=== PATIENT | female | born 1935 | race Caucasian/White ===

== ENCOUNTER → 2016-11-08 | Outpatient (CLI) | payer MEDICARE, OTHER ==
[~2016-11-08] MED LIST: ACIP20TA19; ATOR10 PO; CARD180C5 PO; DICL25 TOPICAL; DIOV160T60 PO; LEVO.075 PO; MAGN500T4 PO; ZOLP10TA3 PO
[2016-11-08 16:10] LABS: BICARBONATE 25.2 MEQ/L (21.0-32.0); POTASSIUM 3.9 MEQ/L (3.5-5.1)
[2016-11-08 16:13] LABS: AUTOMATED NEUTROPHIL # 5.5 TH/MM3 (1.8-7.7); BASOPHIL % 0.5 % (0.0-2.0); EOSINOPHIL # 0.2 TH/MM3 (0-0.4); EOSINOPHIL % 2.5 % (0.0-4.0); HEMO FLAGS DIFF FINAL; LYMPH % 22.1 % (9.0-44.0); LYMPHOCYTE # 1.9 TH/MM3 (1.0-4.8); MEAN CELL VOLUME 84.2 FL (80.0-100.0); MEAN CORPUSCULAR HEMOGLOBIN 28.8 PG (27.0-34.0); MEAN CORPUSCULAR HGB CONC 34.2 % (32.0-36.0); MONO % 10.7 % (0.0-8.0); NEUT % 64.2 % (16.0-70.0); PLATELET COUNT 437 TH/MM3 (150-450); RED BLOOD COUNT 3.68 MIL/MM3 (4.00-5.30); RED CELL DISTRIBUTION WIDTH 14.6 % (11.6-17.2); WHITE BLOOD COUNT 8.5 TH/MM3 (4.0-11.0)
[2016-11-08 16:22] LABS: BACTERIA, URINE MOD /hpf; BLOOD, URINE NEG (NEG); COMMENT (UR) CULTURE INDICATED; CULTURE IF INDICATED CULTURE INDICATED; GLUCOSE,URINE NEG (NEG); KETONE, URINE NEG (NEG); MUCUS URINE FEW /lpf (OCC); NITRITE,URINE NEG (NEG); PH, URINE 5.5 (5.0-8.5); RENAL EPITHELIAL CELLS <1 /hpf; SQUAMOUS EPITHELIAL CELL URINE 2 /hpf (0-5); URINE COLOR YELLOW (YELLW/STRAW)
== END ==
LOC: PLAB 12:51
PROVIDERS: ATTEND Internal Medicine Nephrology
DX: I12.9 Hypertensive chronic kidney disease with stage 1 through stage 4 chronic kidney disease, or unspecified chronic kidney disease (principal); N18.4 Chronic kidney disease, stage 4 (severe); E55.9 Vitamin D deficiency, unspecified; N39.0 Urinary tract infection, site not specified; B96.1 Klebsiella pneumoniae [K. pneumoniae] as the cause of diseases classified elsewhere
CPT/HCPCS: 36415; 80069; 81001; 82306; 83970; 85025; 87077; 87086; 87186

== ENCOUNTER → 2017-05-21 | Outpatient (CLI) | payer MEDICARE, OTHER ==
[2017-05-21 09:20] LABS: AUTOMATED NEUTROPHIL # 5.3 TH/MM3 (1.8-7.7); BASOPHIL # 0.1 TH/MM3 (0-0.2); BASOPHIL % 1.2 % (0.0-2.0); EOSINOPHIL # 0.4 TH/MM3 (0-0.4); EOSINOPHIL % 4.4 % (0.0-4.0); HEMATOCRIT 35.6 % (35.0-46.0); HEMO FLAGS DIFF FINAL; LYMPH % 28.6 % (9.0-44.0); LYMPHOCYTE # 2.7 TH/MM3 (1.0-4.8); MEAN CELL VOLUME 85.5 FL (80.0-100.0); MEAN CORPUSCULAR HEMOGLOBIN 28.6 PG (27.0-34.0); MEAN CORPUSCULAR HGB CONC 33.5 % (32.0-36.0); MONO % 10.3 % (0.0-8.0); NEUT % 55.5 % (16.0-70.0); PLATELET COUNT 649 TH/MM3 (150-450); RED BLOOD COUNT 4.16 MIL/MM3 (4.00-5.30); RED CELL DISTRIBUTION WIDTH 13.9 % (11.6-17.2); WHITE BLOOD COUNT 9.6 TH/MM3 (4.0-11.0)
[2017-05-21 09:44] LABS: BICARBONATE 27.5 MEQ/L (21.0-32.0); POTASSIUM 4.3 MEQ/L (3.5-5.1)
[2017-05-21 13:25] LABS: BLOOD, URINE NEG (NEG); COMMENT (UR) CULT NOT INDICATED; CULTURE IF INDICATED CULT NOT INDICATED; GLUCOSE,URINE NEG (NEG); KETONE, URINE NEG (NEG); NITRITE,URINE NEG (NEG); PH, URINE 5.5 (5.0-8.5); SQUAMOUS EPITHELIAL CELL URINE 3 /hpf (0-5); TRANSITIONAL EPI CELLS, URINE <1 /hpf; URINE COLOR YELLOW (YELLW/STRAW)
== END ==
LOC: PLAB 07:20
PROVIDERS: ATTEND Internal Medicine Nephrology
DX: I12.9 Hypertensive chronic kidney disease with stage 1 through stage 4 chronic kidney disease, or unspecified chronic kidney disease (principal); N18.3 Chronic kidney disease, stage 3 (moderate); E55.9 Vitamin D deficiency, unspecified
CPT/HCPCS: 36415; 80069; 81001; 82306; 85025

== ENCOUNTER → 2017-07-03 | Outpatient (CLI) | payer MEDICARE, OTHER ==
[2017-07-03 09:39] LABS: HEMATOCRIT 33.2 % (35.0-46.0); MEAN CELL VOLUME 86.1 FL (80.0-100.0); MEAN CORPUSCULAR HEMOGLOBIN 29.2 PG (27.0-34.0); MEAN CORPUSCULAR HGB CONC 33.9 % (32.0-36.0); PLATELET COUNT 540 TH/MM3 (150-450); RED BLOOD COUNT 3.85 MIL/MM3 (4.00-5.30); RED CELL DISTRIBUTION WIDTH 13.4 % (11.6-17.2); REVIEW FLAG FINAL; WHITE BLOOD COUNT 9.2 TH/MM3 (4.0-11.0)
[2017-07-03 10:45] LABS: ANION GAP 10 MEQ/L (5-15); AST (GOT) 13 U/L (15-37); BICARBONATE 22.7 MEQ/L (21.0-32.0); BLOOD UREA NITROGEN 25 MG/DL (7-18); CHLORIDE 106 MEQ/L (98-107); GLOMERULAR FILTRATION RATE 26 ML/MIN (>89); GLUCOSE,FASTING 89 MG/DL (74-99); POTASSIUM 3.8 MEQ/L (3.5-5.1); SODIUM (NA) 139 MEQ/L (136-145)
[2017-07-03 11:11] LABS: ALKALINE PHOSPHATASE 76 U/L (45-117); ALT (GPT) 14 U/L (10-53); FREE T4 1.18 NG/DL (0.76-1.46); HDL CHOLESTEROL 44.2 MG/DL (40.0-60.0); LDL CHOLESTEROL 52 MG/DL (0-99); LDL CHOLESTEROL DIRECT 71 MG/DL (0-99); TOTAL BILIRUBIN ADULT 1.3 MG/DL (0.2-1.0)
[2017-07-03 12:21] LABS: HEMOGLOBIN A1b 1.8 %; HEMOGLOBIN Ao 85.2 %; HEMOGLOBIN P3 3.9 %
== END ==
LOC: PLAB 07:04
PROVIDERS: ATTEND Family Medicine
DX: N18.3 Chronic kidney disease, stage 3 (moderate) (principal); E78.4 Other hyperlipidemia; I10 Essential (primary) hypertension; E55.9 Vitamin D deficiency, unspecified; E53.8 Deficiency of other specified B group vitamins
CPT/HCPCS: 36415; 80053; 80061; 82306; 82607; 83036; 83721; 84439; 84443; 85027

== ENCOUNTER 2017-10-08 09:15 | Emergency (ER) | payer MEDICARE, OTHER ==
[~2017-10-08] VITALS: Ht 165.1 cm; Wt 60.0 kg
[2017-10-08 09:17] VITALS: BP 146/69; PULSE 88; RESP 20; TEMP 97.7; O2SAT 98
[2017-10-08] MEDS ORDERED: LEVO75TA3 PO (09:32)
[2017-10-08] MEDS ORDERED: DILT120C50 PO (09:32)
[2017-10-08] MEDS ORDERED: VALS1TAB65 PO (09:32)
[2017-10-08] MEDS ORDERED: ATOR10TA15 PO (09:32)
--- NOTE | 2017-10-08 09:38 | PD ---
HPI Chief Complaint: Cold / Flu Symptoms Time Seen by Provider: 09:22 Travel History International Travel<30 days: No Contact w/Intl Traveler<30days: No Traveled to known affect area: No History of Present Illness HPI This 82-year-old female says she been sick for 4 days. She's been coughing a lot. He has had bronchitis many years ago. She is not aware of fever but she has had chills. She's been coughing up some green and yellow phlegm and has had some yellow drainage from her nose. She has never smoked or drank. She does feel tired. She's had intermittent vomiting when she tries to eat. She has been anemic in the past and received intravenous iron injections. There is been no blood in the vomitus recently PFS Past Medical History Autoimmune Disease: No Cancer: No Cardiovascular Problems: Yes High Cholesterol: Yes Chemotherapy: No Genitourinary: No Hypertension: Yes Immune Disorder: No Kidney Stones: Yes Musculoskeletal: No Neurologic: No Psychiatric: No Reproductive: No Respiratory: No Radiation Therapy: No Thyroid Disease: Yes Ulcer: Yes Menopausal: Yes Past Surgical History AICD: No Hysterectomy: Yes Joint Replacement: No Pacemaker: No Other Surgery: Yes (IMPLANTED HEARING AID IN RIGHT EAR SX) Social History Alcohol Use: No Tobacco Use: No Substance Use: No Allergies-Medications (Allergen,Severity, Reaction): Coded Allergies: Influenza Virus Vaccines (Unverified Allergy, Severe, Confusion, 10/08/17) Reported Meds & Prescriptions Reported Meds & Active Scripts Active Reported Levothyroxine (Levothyroxine Sodium) 75 Mcg Tab 75 Mcg PO DAILY Valsartan 160 Mg Tab 160 Mg PO DAILY Diltiazem CD 24 HR 120 Mg Caper 180 Mg PO DAILY Atorvastatin (Atorvastatin Calcium) 10 Mg Tab 10 Mg PO HS Review of Systems General / Constitutional: Positive: Chills, No: Fever Eyes: No: Diploplia, Blurred Vision HENT: No: Headaches Cardiovascular: No: Chest Pain or Discomfort, Palpitations Respiratory: Positive: Cough Gastrointestinal: Positive: Nausea, Vomiting, No: Diarrhea Genitourinary: No: Frequency, Dysuria Musculoskeletal: No: Myalgias, Arthralgias Skin: No Rash Neurologic: No: Weakness, Dizziness Psychiatric: No: Anxiety, Depression Endocrine: No: Heat Intolerance, Cold Intolerance Hematologic/Lymphatic: No: Easy Bruising Physical Exam Narrative GENERAL: Well-developed female SKIN: Focused skin assessment warm/dry. HEAD: Atraumatic. Normocephalic. EYES: Pupils equal and round. No scleral icterus. No injection or drainage. ENT: No nasal bleeding or discharge. Mucous membranes pink and moist. NECK: Trachea midline. No JVD. CARDIOVASCULAR: Regular rate and rhythm. No murmur appreciated. RESPIRATORY: No accessory muscle use. There are occasional rhonchi. Breath sounds equal bilaterally. GASTROINTESTINAL: Abdomen soft, non-tender, nondistended. Hepatic and splenic margins not palpable. MUSCULOSKELETAL: No obvious deformities. No clubbing. No cyanosis. No edema. NEUROLOGICAL: Awake and alert. No obvious cranial nerve deficits. Motor grossly within normal limits. Normal speech. PSYCHIATRIC: Appropriate mood and affect; insight and judgment normal. Data Data Last Documented VS Vital Signs Date Time Temp Pulse Resp B/P (MAP) Pulse Ox O2 Delivery O2 Flow Rate FiO2 10/08/17 09:28 Room Air 10/08/17 09:17 97.7 88 20 146/69 (94) 98 Orders Orders Complete Blood Count With Diff (10/08/17 09:32) Comprehensive Metabolic Panel (10/08/17 09:32) Sodium Chlor 0.9% 1000 Ml Inj (Ns 1000 M (10/08/17 09:45) Ondansetron Inj (Zofran Inj) (10/08/17 09:45) Chest, Single Ap (10/08/17 09:32) Potassium Chloride (Kcl) (10/08/17 10:15) Labs Laboratory Tests Test 10/08/17 09:42 White Blood Count 11.6 TH/MM3 Red Blood Count 3.03 MIL/MM3 Hemoglobin 9.2 GM/DL Hematocrit 27.1 % Mean Corpuscular Volume 89.5 FL Mean Corpuscular Hemoglobin 30.2 PG Mean Corpuscular Hemoglobin Concent 33.7 % Red Cell Distribution Width 13.9 % Platelet Count 515 TH/MM3 Mean Platelet Volume 7.2 FL Neutrophils (%) (Auto) 77.9 % Lymphocytes (%) (Auto) 10.5 % Monocytes (%) (Auto) 10.5 % Eosinophils (%) (Auto) 0.8 % Basophils (%) (Auto) 0.3 % Neutrophils # (Auto) 9.1 TH/MM3 Lymphocytes # (Auto) 1.2 TH/MM3 Monocytes # (Auto) 1.2 TH/MM3 Eosinophils # (Auto) 0.1 TH/MM3 Basophils # (Auto) 0.0 TH/MM3 CBC Comment DIFF FINAL Differential Comment Blood Urea Nitrogen 31 MG/DL Creatinine 1.90 MG/DL Random Glucose 105 MG/DL Total Protein 7.4 GM/DL Albumin 3.5 GM/DL Calcium Level 6.7 MG/DL Alkaline Phosphatase 73 U/L Aspartate Amino Transf (AST/SGOT) 26 U/L Alanine Aminotransferase (ALT/SGPT) 19 U/L Total Bilirubin 1.6 MG/DL Sodium Level 127 MEQ/L Potassium Level 3.3 MEQ/L Chloride Level 89 MEQ/L Carbon Dioxide Level 23.6 MEQ/L Anion Gap 14 MEQ/L Estimat Glomerular Filtration Rate 25 ML/MIN Protein Corrected Calcium 6.6 MG/DL [facility] Medical Decision Making Medical Screen Exam Complete: Yes Emergency Medical Condition: Yes Medical Record Reviewed: Yes Differential Diagnosis Differential includes pneumonia, bronchitis, viral URI Narrative Course Hemoglobin is 9.2. White count is 11,000. Chest x-rays read as negative. Lab work remarkable for potassium 3.3. Her calcium is low at 6.6 impression is acute bronchitis. She'll be put on antibiotics. She is to follow-up with Dr. Gilmore Diagnosis Primary Impression: Acute bronchitis Qualified Codes: J20.9 - Acute bronchitis, unspecified Scripts Acetaminophen-Codeine (Tylenol-Codeine #3) 300-30 mg Tab 1 TAB PO Q4H Y for cough, #15 TAB 0 Refills Prov: Bro El MD 10/08/17 Ondansetron Odt (Zofran Odt) 4 Mg Tab 4 MG SL Q6HR Y for Nausea/Vomiting, #10 TAB 0 Refills Prov: Bro El MD 10/08/17 Amoxicillin (Amoxicillin) 500 Mg Tab 500 MG PO TID for Infection for 7 Days, TAB 0 Refills Prov: Bro El MD 10/08/17 Disposition: 01 DISCHARGE HOME Condition: Stable Bro El MD Oct 08, 2017 09:38
[2017-10-08] MEDS ORDERED: ONDANSETRON HCL 4 MG/2 ML VIAL IV PUSH ONE (09:45)
[2017-10-08] MEDS ORDERED: SODIUM CHLOR 0.9% 1000 ML INJ 1,000 ML IV SCH (09:45)
[2017-10-08 09:56] LABS: AUTOMATED NEUTROPHIL # 9.1 TH/MM3 (1.8-7.7); BASOPHIL % 0.3 % (0.0-2.0); EOSINOPHIL # 0.1 TH/MM3 (0-0.4); EOSINOPHIL % 0.8 % (0.0-4.0); HEMATOCRIT 27.1 % (35.0-46.0); HEMOGLOBIN 9.2 GM/DL (11.6-15.3); LYMPH % 10.5 % (9.0-44.0); LYMPHOCYTE # 1.2 TH/MM3 (1.0-4.8); MEAN CELL VOLUME 89.5 FL (80.0-100.0); MEAN CORPUSCULAR HEMOGLOBIN 30.2 PG (27.0-34.0); MEAN CORPUSCULAR HGB CONC 33.7 % (32.0-36.0); MEAN PLATELET VOLUME 7.2 FL (7.0-11.0); MONO % 10.5 % (0.0-8.0); MONOCYTE # 1.2 TH/MM3 (0-0.9); NEUT % 77.9 % (16.0-70.0); PLATELET COUNT 515 TH/MM3 (150-450); RED BLOOD COUNT 3.03 MIL/MM3 (4.00-5.30); RED CELL DISTRIBUTION WIDTH 13.9 % (11.6-17.2); WHITE BLOOD COUNT 11.6 TH/MM3 (4.0-11.0)
--- NOTE | 2017-10-08 09:57 | RADRPT ---
EXAM DATE/TIME: 10/08/2017 09:46 [facility] COMPARISON: CHEST SINGLE AP, March 21, 2015, 10:38. INDICATIONS : Cough and congestion for 3 days. MEDICAL HISTORY : Hypertension. Hypercholesterolemia. Thyroid disease. SURGICAL HISTORY : Hysterectomy. Thyroidectomy. ENCOUNTER: Initial ACUITY: 3 days PAIN SCORE: 4/10 LOCATION: Bilateral chest FINDINGS: The cardiac silhouette is normal in transverse diameter. The lungs are free of acute parenchymal opac ity. No effusions are identified. CONCLUSION: No acute cardiopulmonary disease. Miguel Saravia MD on October 08, 2017 at 9:55 Board Certified Radiologist. This report was verified electronically.
[2017-10-08] MEDS ORDERED: POTASSIUM CHLORIDE 20 MEQ CONTROLLED RELEASE TAB PO ONE (10:15)
[2017-10-08 10:25] LABS: ALBUMIN 3.5 GM/DL (3.4-5.0); BICARBONATE 23.6 MEQ/L (21.0-32.0); CALCIUM 6.7 MG/DL (8.5-10.1); CREATININE 1.9 MG/DL (0.50-1.00); TOTAL BILIRUBIN ADULT 1.6 MG/DL (0.2-1.0); TOTAL PROTEIN 7.4 GM/DL (6.4-8.2)
[2017-10-08 10:27] LABS: CALCIUM-PROTEIN CORRECTED 6.6 MG/DL (8.5-10.1)
[2017-10-08] MEDS ORDERED: TYLETAB34 PO (10:51)
[2017-10-08] MEDS ORDERED: AMOX500T PO (10:51)
[2017-10-08] MEDS ORDERED: ZOFR4TAB3 SL (10:51)
[2017-10-08] MEDS ORDERED: robitussin ac PO (10:58)
[2017-10-08 11:02] VITALS: BP 106/61; PULSE 69; RESP 18; O2SAT 93
== END 2017-10-08 11:30 | disposition home or self-care (01) ==
LOC: PHED 09:15
DX: J02.9 Acute pharyngitis, unspecified (principal); I10 Essential (primary) hypertension; E07.9 Disorder of thyroid, unspecified
CPT/HCPCS: 71045; 80053; 85025; 96374; 99284; J2405; J7030

== ENCOUNTER 2017-10-13 15:12 | Emergency (ER) | payer MEDICARE, OTHER ==
[~2017-10-13] VITALS: Ht 165.1 cm; Wt 59.0 kg
[~2017-10-13 15:12] MED LIST changes: -ACIP20TA19; +AMOX500T PO; -ATOR10 PO; +ATOR10TA15 PO; -CARD180C5 PO; -DICL25 TOPICAL; +DILT120C50 PO; -DIOV160T60 PO; -LEVO.075 PO; +LEVO75TA3 PO; -MAGN500T4 PO; +TYLETAB34 PO; +VALS1TAB65 PO; +ZOFR4TAB3 SL; -ZOLP10TA3 PO; +robitussin ac PO
[2017-10-13 15:14] VITALS: BP 122/63; PULSE 99; RESP 18; TEMP 99.3; O2SAT 98
[2017-10-13] MEDS ORDERED: CHOL400D2 PO (15:37)
[2017-10-13] MEDS ORDERED: VITA10002 PO (15:37)
[2017-10-13] MEDS ORDERED: AMBI10TA PO (15:37)
[2017-10-13] MEDS ORDERED: ACETAMINOPHEN 500 MG CPLT PO ONE (16:30)
--- NOTE | 2017-10-13 17:10 | RADRPT ---
EXAM DATE/TIME: 10/13/2017 16:30 [facility] COMPARISON: No previous studies available for comparison. INDICATIONS : Woke up with severe right wrist pain, unable to straighten wrist, no known injury MEDICAL HISTORY : Hypertension. SURGICAL HISTORY : Hysterectomy. ENCOUNTER: Initial ACUITY: 1 day PAIN SCORE: 10/10 LOCATION: Right wrist FINDINGS: Osseous structures are osteopenic. There is old ununited fracture of the ulnar styloid with osteoarth ritis involving the radiocarpal joint. There is no evidence of acute fracture. CONCLUSION: 1. Osteoarthritis as above Miguel Saravia MD on October 13, 2017 at 17:07 Board Certified Radiologist. This report was verified electronically.
[2017-10-13] MEDS ORDERED: PRED20 PO (17:11)
--- NOTE | 2017-10-13 17:12 | PD ---
HPI Chief Complaint: Musculoskeletal Complaint Time Seen by Provider: 15:27 Travel History International Travel<30 days: No Contact w/Intl Traveler<30days: No Traveled to known affect area: No History of Present Illness HPI 82 year old female with nontraumatic right wrist pain since this morning. She reports she awoke to right wrist pain, swelling, warmth. Pain is reported as constant and throbbing. She denies paresthesias or weakness in the extremity. She reports pain with palpation of the wrist and movement. She does have a history of gout. Pain is slightly relieved with rest. PFSH Past Medical History Autoimmune Disease: No Cancer: No Cardiovascular Problems: Yes High Cholesterol: Yes Chemotherapy: No Genitourinary: No Hypertension: Yes Immune Disorder: No Implanted Vascular Access Dvce: No Kidney Stones: Yes Musculoskeletal: No Neurologic: No Psychiatric: No Reproductive: No Respiratory: No Radiation Therapy: No Thyroid Disease: Yes Ulcer: Yes Tetanus Vaccination: < 5 Years Menopausal: Yes Past Surgical History AICD: No Hysterectomy: Yes Joint Replacement: No Pacemaker: No Other Surgery: Yes (IMPLANTED HEARING AID IN RIGHT EAR SX, thyroidectomy) Social History Alcohol Use: No Tobacco Use: No Substance Use: No Allergies-Medications (Allergen,Severity, Reaction): Coded Allergies: Influenza Virus Vaccines (Unverified Allergy, Severe, Confusion, 10/13/17) Reported Meds & Prescriptions Reported Meds & Active Scripts Active Ultram (Tramadol HCl) 50 Mg Tab 50 Mg PO Q6H PRN 3 Days Prednisone 20 Mg Tab 40 Mg PO DAILY Take 40 mg (2 tablets) daily for 5 days [robitussin ac] 5-10 Ml PO Q6HR 7 Days Amoxicillin 500 Mg Tab 500 Mg PO TID 7 Days Reported Vitamin B-12 (Cyanocobalamin) 1,000 Mcg Tab 1,000 Mcg PO DAILY Vitamin D (Cholecalciferol) 400 Unit/Ml Drops 400 Units PO DAILY Ambien (Zolpidem Tartrate) 10 Mg Tab 10 Mg PO HS PRN Levothyroxine (Levothyroxine Sodium) 75 Mcg Tab 75 Mcg PO DAILY Valsartan 160 Mg Tab 160 Mg PO DAILY Diltiazem CD 24 HR 120 Mg Caper 180 Mg PO DAILY Atorvastatin (Atorvastatin Calcium) 10 Mg Tab 10 Mg PO HS Review of Systems Except as stated in HPI: all other systems reviewed are Neg General / Constitutional: No: Fever Eyes: No: Visual changes HENT: No: Headaches Cardiovascular: No: Chest Pain or Discomfort Respiratory: No: Shortness of Breath Gastrointestinal: No: Abdominal Pain Genitourinary: No: Dysuria Physical Exam Narrative GENERAL: Alert well-appearing female. SKIN: Warm and dry. HEAD: Normocephalic. EYES: No injection or drainage. NECK: Supple, trachea midline. CARDIOVASCULAR: Regular rate and rhythm without murmurs, gallops, or rubs. RESPIRATORY: Breath sounds equal bilaterally. No accessory muscle use. GASTROINTESTINAL: Abdomen soft, non-tender, nondistended. MUSCULOSKELETAL: No cyanosis. Right upper extremity: Mild swelling, warmth, erythema to the right wrist dorsal aspect. No wounds, lesions, or overlying cellulitis. 2+ radial pulse. Brisk cap refill. Data Data Last Documented VS Vital Signs Date Time Temp Pulse Resp B/P (MAP) Pulse Ox O2 Delivery O2 Flow Rate FiO2 10/13/17 15:14 99.3 99 18 122/63 (82) 98 Orders Orders Wrist, Complete ([id number]) (10/13/17 ) Acetaminophen (Tylenol) (10/13/17 16:30) Ed Discharge Order (10/13/17 17:14) MDM Medical Decision Making Medical Screen Exam Complete: Yes Emergency Medical Condition: Yes Differential Diagnosis Gout, arthritis, wrist fracture, septic joint Narrative Course 82 -year-old female here with nontraumatic right wrist pain. She has a history of gout. This pain is similar. On exam she has mild warmth, erythema, swelling of the right wrist. X-rays negative for fracture. Patient has known chronic kidney disease. She will be put on steroids and Ultram as needed for pain. She has a follow-up appointment with her doctor tomorrow. Diagnosis Primary Impression: Gout Qualified Codes: M10.9 - Gout, unspecified Referrals: Primary Care Physician Additional Instructions: Medications as prescribed. Follow-up the primary doctor. Return if he developed new or worsening symptoms. Scripts Tramadol (Ultram) 50 Mg Tab 50 MG PO Q6H Y for PAIN for 3 Days, #12 TAB 0 Refills Prov: Saadia Franco MD 10/13/17 Prednisone (Prednisone) 20 Mg Tab 40 MG PO DAILY, #10 TAB 0 Refills Take 40 mg (2 tablets) daily for 5 days Prov: Flori Dykes 10/13/17 Disposition: 01 DISCHARGE HOME Condition: Stable Flori Dykes Oct 13, 2017 17:12
[2017-10-13] MEDS ORDERED: TRAM50 PO (17:17)
== END 2017-10-13 17:26 | disposition home or self-care (01) ==
LOC: PHEFT 15:12
DX: M10.9 Gout, unspecified (principal); E07.9 Disorder of thyroid, unspecified; I10 Essential (primary) hypertension
CPT/HCPCS: 73110; 99284

== ENCOUNTER → 2017-11-11 | Outpatient (CLI) | payer MEDICARE, OTHER ==
[~2017-11-11] MED LIST changes: +AMBI10TA PO; +CHOL400D2 PO; +PRED20 PO; +TRAM50 PO; -TYLETAB34 PO; +VITA10002 PO; -ZOFR4TAB3 SL
[2017-11-11 09:58] LABS: AUTOMATED NEUTROPHIL # 3.2 TH/MM3 (1.8-7.7); BASOPHIL % 0.8 % (0.0-2.0); EOSINOPHIL # 0.2 TH/MM3 (0-0.4); EOSINOPHIL % 3.3 % (0.0-4.0); HEMATOCRIT 28.4 % (35.0-46.0); HEMOGLOBIN 9.7 GM/DL (11.6-15.3); LYMPH % 30.9 % (9.0-44.0); LYMPHOCYTE # 1.8 TH/MM3 (1.0-4.8); MEAN CELL VOLUME 90.2 FL (80.0-100.0); MEAN CORPUSCULAR HEMOGLOBIN 30.9 PG (27.0-34.0); MEAN CORPUSCULAR HGB CONC 34.2 % (32.0-36.0); MEAN PLATELET VOLUME 7.5 FL (7.0-11.0); MONO % 10.5 % (0.0-8.0); MONOCYTE # 0.6 TH/MM3 (0-0.9); NEUT % 54.5 % (16.0-70.0); PLATELET COUNT 449 TH/MM3 (150-450); RED BLOOD COUNT 3.15 MIL/MM3 (4.00-5.30); RED CELL DISTRIBUTION WIDTH 16.2 % (11.6-17.2); WHITE BLOOD COUNT 5.8 TH/MM3 (4.0-11.0)
[2017-11-11 10:05] LABS: ALBUMIN 3.7 GM/DL (3.4-5.0); BICARBONATE 23.6 MEQ/L (21.0-32.0); CALCIUM 7.8 MG/DL (8.5-10.1); CREATININE 1.3 MG/DL (0.50-1.00)
[2017-11-11 10:06] LABS: PHOSPHORUS 3.1 MG/DL (2.5-4.9)
== END ==
LOC: PLAB 07:13
PROVIDERS: ATTEND Internal Medicine Nephrology
DX: I12.9 Hypertensive chronic kidney disease with stage 1 through stage 4 chronic kidney disease, or unspecified chronic kidney disease (principal); N18.3 Chronic kidney disease, stage 3 (moderate); E55.9 Vitamin D deficiency, unspecified; M10.9 Gout, unspecified
CPT/HCPCS: 36415; 80069; 82306; 83970; 84550; 85025

== ENCOUNTER → 2018-02-11 | Outpatient (CLI) | payer MEDICARE, OTHER ==
[2018-02-11 10:15] LABS: HEMATOCRIT 36.8 % (35.0-46.0); HEMOGLOBIN 12.7 GM/DL (11.6-15.3); MEAN CELL VOLUME 88.2 FL (80.0-100.0); MEAN CORPUSCULAR HEMOGLOBIN 30.4 PG (27.0-34.0); MEAN CORPUSCULAR HGB CONC 34.5 % (32.0-36.0); MEAN PLATELET VOLUME 7.3 FL (7.0-11.0); PLATELET COUNT 770 TH/MM3 (150-450); RED BLOOD COUNT 4.17 MIL/MM3 (4.00-5.30); RED CELL DISTRIBUTION WIDTH 13.3 % (11.6-17.2); WHITE BLOOD COUNT 8.1 TH/MM3 (4.0-11.0)
[2018-02-11 10:18] LABS: ALBUMIN 4.3 GM/DL (3.4-5.0); AST (GOT) 14 U/L (15-37); BICARBONATE 26.4 MEQ/L (21.0-32.0); BLOOD UREA NITROGEN 28 MG/DL (7-18); CALCIUM 9.8 MG/DL (8.5-10.1); CHLORIDE 102 MEQ/L (98-107); CHOLESTEROL 134 MG/DL (120-200); CREATININE 1.41 MG/DL (0.50-1.00); GLOMERULAR FILTRATION RATE 36 ML/MIN (>89); GLUCOSE,FASTING 96 MG/DL (74-99); SODIUM (NA) 136 MEQ/L (136-145)
[2018-02-11 10:27] LABS: ALKALINE PHOSPHATASE 67 U/L (45-117); ALT (GPT) 17 U/L (10-53); CHOLESTEROL/ HDL RATIO 2.38 RATIO; FREE T4 1.03 NG/DL (0.76-1.46); HDL CHOLESTEROL 56.3 MG/DL (40.0-60.0); LDL CHOLESTEROL 42 MG/DL (0-99); LDL CHOLESTEROL DIRECT 65 MG/DL (0-99); TOTAL BILIRUBIN ADULT 1.1 MG/DL (0.2-1.0); TOTAL PROTEIN 8.2 GM/DL (6.4-8.2); TRIGLYCERIDES 177 MG/DL (42-150)
== END ==
LOC: PLAB 06:41
PROVIDERS: ATTEND Family Medicine
DX: I12.9 Hypertensive chronic kidney disease with stage 1 through stage 4 chronic kidney disease, or unspecified chronic kidney disease (principal); N18.3 Chronic kidney disease, stage 3 (moderate); E78.5 Hyperlipidemia, unspecified; E55.9 Vitamin D deficiency, unspecified
CPT/HCPCS: 36415; 80053; 80061; 82306; 83721; 84439; 84443; 85027

== ENCOUNTER 2018-06-06 08:05 | Observation (INO) ==
[2018-06-06] MEDS ORDERED: Aluminum/Magnesium/Simethacone Susp 30 ML UDC PO ONE (08:26)
[2018-06-06] MEDS ORDERED: Sod Chloride 0.9% Inj 1,000 ML IV.SIG ONE (08:26)
[2018-06-06 08:51] LABS: Baso # (Auto) 0.1 th/mm3 (0.0-0.2); Baso % (Auto) 0.6 % (0.0-2.0); Eos # (Auto) 0.1 th/mm3 (0.0-0.4); Eos % (Auto) 0.8 % (0.0-4.0); Hemoglobin 12.1 gm/dL (11.6-15.3); Lymph # (Auto) 1.4 th/mm3 (1.0-4.8); Lymph % (Auto) 13.5 % (9.0-44.0); Mean Corpuscular HGB Conc 33.5 % (32.0-36.0); Mean Corpuscular Hemoglobin 30.4 pg (27.0-34.0); Mean Corpuscular Volume 90.6 fL (80.0-100.0); Mean Platelet Volume 6.4 fL (7.0-11.0); Mono # (Auto) 0.9 th/mm3 (0.0-0.9); Mono % (Auto) 8.5 % (0.0-8.0); Neut # (Auto) 7.5 th/mm3 (1.8-7.7); Neut % (Auto) 76.6 % (16.0-70.0); Platelet Count 1046 th/mm3 (150-450); Red Blood Count 3.98 mil/mm3 (4.00-5.30); Red Cell Distribution Width 12.4 % (11.6-17.2)
--- NOTE | 2018-06-06 09:00 | ED ---
HPI General Chief Complaint: Abdominal Pain Stated Complaint: Mouth burning x 1 month Source: patient Mode of arrival: ambulatory Limitations: no limitations History of Present Illness HPI narrative: freddie has two complaints, one is a burning sensation to her mouth for at least a month, which has affected her eating because it luna...patient does not have any open ulcers, denies n/v/d/cp/back pain. pt secondly c/o epig area pain, also burning to sharp, 5/10, nonrad, seemingly not affected by eating. MD complaint: abdominal pain Onset (ago): day(s) (1) Pain Consistency: constant Location: epigastric Severity: moderate Severity scale (1-10): 5 Quality: burning Radiation: none Migration to: no migration Relieving factors: nothing Exacerbating factors: nothing Associated symptoms: denies other symptoms Related Data Home Medications Medication Instructions Recorded Confirmed citalopram 20 mg PO DAILY 06/06/18 06/06/18 diltiazem HCl 180 mg PO DAILY 06/06/18 06/06/18 levothyroxine [Synthroid] 50 mcg PO DAILY 06/06/18 06/06/18 rabeprazole 20 mg PO DAILY 06/06/18 06/06/18 valsartan 80 mg PO DAILY 06/06/18 06/06/18 zolpidem 10 mg PO DAILY 06/06/18 06/06/18 Allergies Allergy/AdvReac Type Severity Reaction Status Date / Time Influenza Virus Vaccines Allergy Severe Confusion Verified 06/06/18 08:08 Review of Systems ROS: all other systems reviewed are negative PMFSH History History Provided By: Patient Medical History Medical History GERD (gastroesophageal reflux disease) (Acute) Gout (Acute) H/O: hysterectomy (Acute) HTN (hypertension) (Acute) Hypothyroid (Acute) Surgical History Surgical History History of knee surgery (Acute) Social History Social History Substance History: No History of Abuse Second Hand Smoke Exposure: No Smoking Status: Never smoker How Often Do You Have a Drink Containing Alcohol: Never Recent Travel in [facility] within the Last 8 Weeks: No Recent Out of Country Travel within the Last 8 Weeks: No Immunization History Tetanus Immunization: <5 Years Hx Influenza Vaccine This Season: No Exam HENMT Head: normocephalic and atraumatic Nose: no nasal discharge and no epistaxis Mouth: moist mucous membranes (additionally no ulcerations, no bleeding.) Eyes Sclera: normal sclerae Pupils: PERRL Neck Neck: trachea midline and no JVD Resp Effort & Inspection: no use of accessory muscles Auscultation: clear to auscultation bilaterally Cardio Rate: regular rate Rhythm: regular rhythm Heart Sounds: no murmurs GI Inspection: non-distended Palpation: soft, no hepatosplenomegaly and nontender Skin General: dry skin (warm) Neuro General: alert and awake Cranial Nerves: other Speech: speech normal Motor: no movement abnormalities noted Extrem General: normal to inspection, no clubbing, no cyanosis and no edema Psych Mood: congruent mood Affect: normal affect Judgment: judgment good Course Initial Documented Vital Signs Temperature 97.8 F 06/06/18 08:08 Pulse Rate 74 06/06/18 08:08 Respiratory Rate 16 06/06/18 08:08 Blood Pressure 119/70 06/06/18 08:08 Pulse Oximetry 97 06/06/18 08:08 Last Documented Vital Signs Temperature 97.8 F 06/06/18 08:08 Pulse Rate 63 06/06/18 08:29 Respiratory Rate 16 06/06/18 08:29 Blood Pressure 137/72 06/06/18 08:29 Pulse Oximetry 98 06/06/18 08:29 Medical Decision Making MDM Narrative Medical decision making narrative: CBC shows no leukocytosis, no left shift, however there is thrombocytosis of 1046 rather 1,046,000 platelet count First cardiac enzymes set negative. Hyponatremia 125, elevated total bilirubin 1.8, however normal pancreatic and liver enzymes Medical Screen Exam Complete: Yes Emergency Medical Condition: Yes Lab Data Result diagrams: 06/06/18 08:40 06/06/18 08:40 Lab Results 06/06/18 06/06/18 06/06/18 Range/Units 08:40 08:40 10:05 CBC w Diff Slide review pending WBC 10.0 (4.0-11.0) th/mm3 RBC 3.98 L (4.00-5.30) mil/mm3 Hgb 12.1 (11.6-15.3) gm/dL Hct 36.0 (35.0-46.0) % MCV 90.6 (80.0-100.0) fL MCH 30.4 (27.0-34.0) pg MCHC 33.5 (32.0-36.0) % RDW 12.4 (11.6-17.2) % Plt Count 1046 H (150-450) th/mm3 MPV 6.4 L (7.0-11.0) fL Neut % (Auto) 76.6 H (16.0-70.0) % Lymph % (Auto) 13.5 (9.0-44.0) % [place] % (Auto) 8.5 H (0.0-8.0) % Eos % (Auto) 0.8 (0.0-4.0) % Baso % (Auto) 0.6 (0.0-2.0) % Neut # (Auto) 7.5 (1.8-7.7) th/mm3 Lymph # (Auto) 1.4 (1.0-4.8) th/mm3 [place] # (Auto) 0.9 (0.0-0.9) th/mm3 Eos # (Auto) 0.1 (0.0-0.4) th/mm3 Baso # (Auto) 0.1 (0.0-0.2) th/mm3 WBC Differential . Diff Scan Auto diff confirmed Differential Comment . Platelet Estimate High H (Normal) Platelet Morphology Normal (Normal) Sodium 125 L (136-145) meq/L Potassium 3.6 (3.5-5.1) meq/L Chloride 91 L (98-107) meq/L Carbon Dioxide 23.7 (21.0-32.0) meq/L Anion Gap 10 (5-15) meq/L BUN 12 (7-18) mg/dL Creatinine 1.20 H (0.50-1.00) mg/dL Estimated GFR 43 L (>89) mL/min Random Glucose 110 H (74-106) mg/dL Calcium 8.8 (8.5-10.1) mg/dL Total Bilirubin 1.8 H (0.2-1.0) mg/dL AST 15 (15-37) U/L ALT 16 (10-53) U/L Alkaline Phosphatase 58 (45-117) U/L Total Creatine Kinase 42 (26-192) U/L Troponin I Less than 0.02 L (0.02-0.05) ng/mL Total Protein 7.5 (6.4-8.2) g/dL Albumin 3.8 (3.4-5.0) g/dL Lipase 132 (73-393) U/L Ur Collection Type Clean catch Urine Color Yellow (Yellw/Straw) Urine Clarity Clear (Clear) Urine pH 6.0 (5.0-8.5) Ur Specific [place] Less/equal 1.005 (1.002-1.035) Urine Protein Negative (Neg-Trace) mg/dL Urine Glucose (UA) Negative (Negative) mg/dL Urine Ketones Negative (Negative) mg/dL Urine Occult Blood Negative (Negative) Urine Nitrate Negative (Negative) Urine Bilirubin Negative (Negative) Urine Urobilinogen 0.2 (Less than 2) mg/dL Ur Leukocyte Esterase Negative (Negative) Ur Squamous Epith Cells 0-5 (0-5) /hpf Urine Bacteria Few H (None) /hpf Micro UA Comment Culture not ind Ur Microscopic Review Microscopic reviewed Urine Culture Comments Culture not ind Imaging Data Radiologist's impression: Abdomen/Pelvis CT 06/06/18 08:26 CONCLUSION: 1. Bilateral renal scarring. 2. Atherosclerosis. 3. No inflammatory changes are identified. ECG Data EKG Prior to Arrival: No Attestation: I personally reviewed and interpreted this ECG as follows: Prior ECG tracings: not available for review Interpretation: Normal sinus rhythm, 62 bpm, normal intervals, no evidence of any ST elevation TX pattern noted. Nonspecific T-wave changes Discharge Plan Discharge Disposition Patient Disposition: 30 Still Patient Discharge Condition Condition: Stable Discharge Details Diagnosis: Thrombocytosis, Acute hyponatremia, Acute dehydration, Paresthesia Physicians Team ED Provider: Deon Iqbal Primary Care Provider: Davidson Gilmore Rxs /Orders / Referrals /Forms Prescriptions: No Action rabeprazole 20 mg Tablet,Delayed Release (Dr/Ec) 20 mg PO DAILY RF: 0 diltiazem HCl 180 mg Capsule,Extended Release 24 Hr 180 mg PO DAILY RF: 0 valsartan 80 mg Tablet 80 mg PO DAILY RF: 0 citalopram 20 mg Tablet 20 mg PO DAILY RF: 0 levothyroxine [Synthroid] 50 mcg Tablet 50 mcg PO DAILY RF: 0 zolpidem 10 mg Tablet 10 mg PO DAILY RF: 0 Status ED Status: With Nurse
[2018-06-06 09:01] LABS: Chloride 91 meq/L (98-107); Potassium 3.6 meq/L (3.5-5.1); Sodium 125 meq/L (136-145)
[2018-06-06 09:04] LABS: Calcium 8.8 mg/dL (8.5-10.1)
[2018-06-06 09:05] LABS: Albumin 3.8 g/dL (3.4-5.0); Anion Gap 10 meq/L (5-15); Blood Urea Nitrogen 12 mg/dL (7-18); Carbon Dioxide 23.7 meq/L (21.0-32.0); Glucose,Random 110 mg/dL (74-106); Lipase 132 U/L (73-393)
[2018-06-06 09:08] LABS: Alanine Aminotransferase 16 U/L (10-53); Aspartate Aminotransferase 15 U/L (15-37); Glomerular Filtration Rate 43 mL/min (>89)
[2018-06-06 09:09] LABS: Total Protein 7.5 g/dL (6.4-8.2)
[2018-06-06 09:11] LABS: Alkaline Phosphatase 58 U/L (45-117)
--- NOTE | 2018-06-06 09:20 | CT ---
EXAM DATE: 06/06/2018 9:13 AM EDT AGE/SEX: 83 years / Female INDICATIONS: Midline upper abdominal pain. Nausea. CLINICAL DATA: This is the patient's initial encounter. Patient reports that signs and symptoms have been present for 2 days and indicates a pain score of 10/10. MEDICAL/SURGICAL HISTORY: Gastroesophageal reflux disease. Hypertension. Hysterectomy. Append ectomy. RADIATION DOSE: 6.05 CTDI (mGy) COMPARISON: [facility], CT ABDOMEN & PELVIS W CONTRAST, 03/21/2015. . TECHNIQUE: Multiple contiguous axial images were obtained through the abdomen. Images were obtained using multiple row detector helical technique. Using automated exposure control and adjustment of the mA and/or kV according to patient size, radiation dose was kept as low as reasonably achievable to o btain optimal diagnostic quality images. DICOM format image data is available electronically for rev iew and comparison. FINDINGS: The osseous structures demonstrate degenerative changes of the spine. Lung bases are clear. No pleura l or pericardial effusions are seen. Liver, gallbladder, adrenals, spleen, pancreas unremarkable. Dif fuse atherosclerotic calcification of the aorta and iliac vessels. Urinary bladder is unremarkable. T he patient is status post appendectomy and hysterectomy. There is diverticulosis of the sigmoid colon without diverticulitis. There is scarring present within both kidneys demonstrating cortical thinnin g. No inflammatory changes are seen in the abdomen or pelvis. CONCLUSION: 1. Bilateral renal scarring. 2. Atherosclerosis. 3. No inflammatory changes are identified. Electronically signed by: Juan Manuel Rodriguez MD 06/06/2018 9:18 AM EDT
[2018-06-06 09:22] LABS: Creatine Kinase 42 U/L (26-192)
[2018-06-06 09:29] LABS: Platelet Morphology Normal (Normal)
[2018-06-06 10:21] LABS: Bilirubin,Urine Negative (Negative); Clarity,Urine Clear (Clear); Color,Urine Yellow (Yellw/Straw); Glucose,Urine (UA) Negative (Negative); Leukocyte Esterase,Urine Negative (Negative); Nitrite,Urine Negative (Negative); Specific Gravity,Urine Less/Equal 1.005 (1.002-1.035); Urobilinogen,Urine 0.2 mg/dL (Less than 2)
[2018-06-06 10:31] LABS: Bacteria,Urine Few /hpf; Squamous Epithelial Cell,Urine 0-5 /hpf (0-5)
--- NOTE | 2018-06-06 11:24 | ECG ---
Date Performed: 06/06/2018 Time Performed: 08:34:25 PTAGE: 83 years EKG: Sinus rhythm NORMAL ECG PREVIOUS TRACING : 05/11/2016 12.09 Since the previous tracing, no significant change noted DOCTOR: Miguel Espinoza Interpretating Date/Time 06/06/2018 11:23:40
[2018-06-06] MEDS ORDERED: Bisacodyl 10 MG Supp RECTAL PRN (11:36)
[2018-06-06] MEDS ORDERED: Acetaminophen 325 MG Tablet PO PRN (11:36)
[2018-06-06] MEDS ORDERED: Pantoprazole Inj 40 MG Vial IV.PUSH ONE (13:39)
--- NOTE | 2018-06-06 13:52 | P.HP ---
History of Present Illness Service: Hospitalist Primary Care Physician: Davidson Gilmore MD Chief Complaint: Mouth Burning syndrome History of Present Illness: Ms. Dent is a pleasant 83-year-old female with a history of hypertension, hypothyroidism who presents to the emergency department due to marked burning condition that started about a month ago. Prior to the onset of her symptoms, patient had some viral infections. She also complains of epigastric pain as well as pain substernally that is burning in quality. Due to this burning sensation she has not been able to eat or drink much. She follows up with an outpatient rhythmic gymnastics coach who performed EGD in January 2018. She also had a capsule endoscopy done. Patient denies any fever or chills. No abdominal pain, changes in bowel or bladder habits. Past medical history: GERD, hypertension, CKD Past surgical history: Hysterectomy, right knee surgery, hearing aid placement. Social history: Patient denies using tobacco, alcohol, illicit drugs. Family history: Mother had kidney disease, hypertension. - Diagnosis (1) Burning mouth syndrome (2) Thrombocytosis (3) Hyponatremia PMFSH - History History Provided By: Patient - Medical History Medical History: Medical History (Last Reviewed 06/06/18 @ 08:58 by Deon Iqbal) GERD (gastroesophageal reflux disease) Gout H/O: hysterectomy HTN (hypertension) Hypothyroid - Surgical History Surgical History: Surgical History (Last Reviewed 06/06/18 @ 08:58 by Deon Iqbal) History of knee surgery - Tobacco History Second Hand Smoke Exposure: No Smoking Status: Never smoker - Alcohol History How Often Do You Have a Drink Containing Alcohol: Never - Substance Use History Substance History: No History of Abuse - Travel History Recent Travel in the [place] Within the Last 8 Weeks: No Recent Travel Out of the Country Within the Last 8 Weeks: No - Immunization History Tetanus Immunization: <5 Years Hx Influenza Vaccine This Season: No Medications and Allergies Active Medications: Active Medications Acetaminophen (Tylenol) 650 mg PO Q4H PRN PRN Reason: Fever, headache, pain 1-5 Al Hydroxide/Mg Hydroxide (Milk Of Magnesia Liq) 30 ml PO Q12H PRN PRN Reason: Mild Constipation Bisacodyl (Dulcolax Supp) 10 mg RECTAL DAILY PRN PRN Reason: SEVERE CONSITIPATION Gabapentin (Neurontin) 200 mg PO TID HUNG Sodium Chloride (Ns Inj) 1,000 mls @ 100 mls/hr IV.CONT .Q10H HUNG Lactulose (Lactulose Liq) 30 ml PO DAILY PRN PRN Reason: SEVERE CONSITIPATION Multivitamins/Minerals (Theragran-M) 1 tab PO DAILY HUNG Ondansetron HCl (Zofran Inj) 4 mg IV.PUSH Q6H PRN PRN Reason: NAUSEA OR VOMITING Pramipexole Dihydrochloride (Mirapex) 0.25 mg PO BID HUNG Sennosides (Senokot) 17.2 mg PO Q12H PRN PRN Reason: Moderate Constipation Sodium Chloride (Ns Flush) 2 ml IV.FLUSH PRN PRN PRN Reason: FLUSH AFTER USING IV ACCESS Allergies Allergy/AdvReac Type Severity Reaction Status Date / Time Influenza Virus Vaccines Allergy Severe Confusion Verified 06/06/18 08:08 Home Medications Medication Instructions Recorded Confirmed Type citalopram 20 mg PO DAILY 06/06/18 06/06/18 History diltiazem HCl 180 mg PO DAILY 06/06/18 06/06/18 History levothyroxine [Synthroid] 50 mcg PO DAILY 06/06/18 06/06/18 History rabeprazole 20 mg PO DAILY 06/06/18 06/06/18 History valsartan 80 mg PO DAILY 06/06/18 06/06/18 History zolpidem 10 mg PO DAILY 06/06/18 06/06/18 History Exam Vital signs: Vital Signs 06/06/18 08:08 06/06/18 08:29 06/06/18 12:12 Temperature 97.8 F Pulse Rate 74 63 67 Respiratory Rate 16 16 16 Blood Pressure 119/70 137/72 147/79 H Pulse Oximetry 97 98 95 Intake & Output 06/05/18 06/06/18 06/06/18 18:59 06:59 18:59 Intake Total 1000 / 1000 Balance 1000 / 1000 Weight 57.4 kg Intake: IV 1000 / 1000 NS Inj 1,000 ML @ Wide Open IV. 1000 / 1000 SIG BOLUS ONE Rx#:[id number] Narrative: GENERAL: This is a well-nourished, well-developed patient, in no apparent distress. SKIN: No rashes, ecchymoses or lesions. Warm and dry. HEAD: Atraumatic. Normocephalic. No temporal or scalp tenderness. EYES: Pupils equal round and reactive. No injection or drainage. ENT: Nose without bleeding, purulent drainage or septal hematoma. Airway patent. NECK: Trachea midline. No lymphadenopathy. Supple, nontender, no meningeal signs. CARDIOVASCULAR: Regular rate and rhythm without murmurs, gallops, or rubs. No JVD. RESPIRATORY: Clear to auscultation. Breath sounds equal bilaterally. No wheezes , rales, or rhonchi. GASTROINTESTINAL: Abdomen soft, non-tender, nondistended. No guarding. MUSCULOSKELETAL: Extremities without clubbing, cyanosis, or edema. NEUROLOGICAL: Awake and alert. Cranial nerves II through XII intact. No focal neurological deficits. Normal speech. Results - Labs CBC & Chem 7: 06/06/18 08:40 06/06/18 08:40 Labs: Laboratory Results - last 24 hr 06/06/18 06/06/18 06/06/18 08:40 08:40 10:05 CBC w Diff Slide review pending WBC 10.0 RBC 3.98 L Hgb 12.1 Hct 36.0 MCV 90.6 MCH 30.4 MCHC 33.5 RDW 12.4 Plt Count 1046 H MPV 6.4 L Neut % (Auto) 76.6 H Lymph % (Auto) 13.5 Harper % (Auto) 8.5 H Eos % (Auto) 0.8 Baso % (Auto) 0.6 Neut # (Auto) 7.5 Lymph # (Auto) 1.4 Harper # (Auto) 0.9 Eos # (Auto) 0.1 Baso # (Auto) 0.1 WBC Differential . Diff Scan Auto diff confirmed Differential Comment . Platelet Estimate High H Platelet Morphology Normal Sodium 125 L Potassium 3.6 Chloride 91 L Carbon Dioxide 23.7 Anion Gap 10 BUN 12 Creatinine 1.20 H Estimated GFR 43 L Random Glucose 110 H Calcium 8.8 Total Bilirubin 1.8 H AST 15 ALT 16 Alkaline Phosphatase 58 Total Creatine Kinase 42 Troponin I Less than 0.02 L Total Protein 7.5 Albumin 3.8 Lipase 132 Ur Collection Type Clean catch Urine Color Yellow Urine Clarity Clear Urine pH 6.0 Ur Specific [place] Less/equal 1.005 Urine Protein Negative Urine Glucose (UA) Negative Urine Ketones Negative Urine Occult Blood Negative Urine Nitrate Negative Urine Bilirubin Negative Urine Urobilinogen 0.2 Ur Leukocyte Esterase Negative Ur Squamous Epith Cells 0-5 Urine Bacteria Few H Micro UA Comment Culture not ind Ur Microscopic Review Microscopic reviewed Urine Culture Comments Culture not ind - Imaging Impressions Abdomen/Pelvis CT 06/06/18 08:26 CONCLUSION: 1. Bilateral renal scarring. 2. Atherosclerosis. 3. No inflammatory changes are identified. Caprini VTE Risk Assessment Caprini VTE Risk Assessment: No/Low Risk (score <= 1) Caprini Risk Assessment Model: Point Value = 1 Point Value = 2 Point Value = 3 Point Value = 5 Age 41-60 Minor surgery BMI > 25 kg/m2 Swollen legs Varicose veins or History of unexplained or recurrent spontaneous Oral contraceptives or hormone replacement Sepsis (< 1 month) Serious lung disease, including pneumonia (< 1 month) Abnormal pulmonary function Acute myocardial infarction Congestive heart failure (< 1 month) History of inflammatory bowel disease Medical patient at bed rest Age 61-74 Arthroscopic surgery Major open surgery (> 45 min) Laparoscopic surgery (> 45 min) Malignancy Confined to bed (> 72 hours) Immobilizing plaster cast Central venous access Age >= 75 History of VTE Family history of VTE Factor V Leiden Prothrombin [id number] Lupus anticoagulant Anticardiolipin antibodies Elevated serum homocysteine Heparin-induced thrombocytopenia Other congenital or acquired thrombophilia Stroke (< 1 month) Elective arthroplasty Hip, pelvis, or leg fracture Acute spinal cord injury (< 1 month) Prophylaxis Regimen: Total Risk Factor Score Risk Level Prophylaxis Regimen 0-1 Low Early ambulation 2 Moderate Order ONE of the following: *Sequential Compression Device (SCD) *Heparin 5000 units SQ BID 3-4 Higher Order ONE of the following medications: *Heparin 5000 units SQ TID *Enoxaparin/Lovenox 40 mg SQ daily (WT < 150 kg, CrCl > 30 mL/min) *Enoxaparin/Lovenox 30 mg SQ daily (WT < 150 kg, CrCl > 10-29 mL/min) *Enoxaparin/Lovenox 30 mg SQ BID (WT < 150 kg, CrCl > 30 mL/min) AND/OR *Sequential Compression Device (SCD) 5 or more Highest Order ONE of the following medications: *Heparin 5000 units SQ TID (Preferred with Epidurals) *Enoxaparin/Lovenox 40 mg SQ daily (WT < 150 kg, CrCl > 30 mL/min) *Enoxaparin/Lovenox 30 mg SQ daily (WT < 150 kg, CrCl > 10-29 mL/min) *Enoxaparin/Lovenox 30 mg SQ BID (WT < 150 kg, CrCl > 30 mL/min) AND *Sequential Compression Device (SCD) Assessment and Plan - Assessment (1) Burning mouth syndrome Code(s): K14.6 - Glossodynia Status: Acute (2) Thrombocytosis Code(s): D47.3 - Essential (hemorrhagic) thrombocythemia Status: Acute (3) Hyponatremia Code(s): E87.1 - Hypo-osmolality and hyponatremia Status: Acute - Plan Ms. Dent is a pleasant 83-year-old female with a history of hypertension, thrombocytosis, CKD who presents to the emergency department due to 1 month duration of burning mouth symptoms as well as epigastric and substernal burning sensation. Patient recently had EGD and capsule endoscopy by her outpatient GI physician. She has been difficulty eating or drinking due to department sensation. Burning mouth syndrome GERD -No clear etiology. However viral etiology versus GERD are likely results. -We will start patient on Protonix 40 mg twice daily as well as sucralfate -Start patient on gabapentin as well as pramipexole -Also start multivitamins Thrombocytosis -patient follows up with an outpatient hematology oncologist. She should likely consider aspirin. Hypertension CKD stage III Hyponatremia -Patient follows up with nephrology Dr. Hinds. -Cr appears to be baseline. Full code. SCDs.
[2018-06-06] MEDS: Sod Chloride 0.9% Inj 1,000 ML IV.CONT SCH (14:32)
[2018-06-06] MEDS: Gabapentin 100 MG Capsule PO SCH ×2 (14:33→17:42)
[2018-06-06] MEDS: Multivitamin/Minerals Therapeutic Tablet PO SCH (14:33)
[2018-06-06] MEDS: Sucralfate Liq 1 GM/10 ML UDC PO SCH ×2 (17:43→22:24)
[2018-06-06] MEDS: Nystatin/Diphenhydramine/Lidocaine Mouthwash (Adult) 120 ML Botttle SWISH-SWAL PRN (17:49)
[2018-06-06 20:18] VITALS: RESP 20
[2018-06-06] MEDS ORDERED: VALSARTAN 80 MG PO SCH (21:00)
[2018-06-07] MEDS: Sod Chloride 0.9% Inj 1,000 ML IV.CONT SCH ×3 (02:11→18:21)
[2018-06-07] MEDS: Levothyroxine 50 MCG Tablet PO SCH (06:36)
[2018-06-07 08:14] LABS: Potassium 3.1 meq/L (3.5-5.1)
[2018-06-07 08:34] LABS: Calcium 7.7 mg/dL (8.5-10.1); Carbon Dioxide 24.7 meq/L (21.0-32.0)
--- NOTE | 2018-06-07 08:44 | P.PN ---
Subjective Interval history: Follow-up for burning mouth syndrome. Patient is currently doing well. She reports significant improvement of her symptoms. No fever or chills. She is able to tolerate food much better now. Physical Exam Vital signs: Vital Signs 06/06/18 12:12 06/06/18 16:00 06/06/18 18:03 Temperature 97.2 F L Pulse Rate 67 63 70 Respiratory Rate 16 16 Blood Pressure 147/79 H 181/96 H 156/83 H Pulse Oximetry 95 96 06/06/18 20:00 06/07/18 04:00 06/07/18 07:22 Temperature 96.8 F L 98.3 F 96.7 F L Pulse Rate 67 71 59 L Respiratory Rate 20 20 20 Blood Pressure 132/70 151/75 H 160/79 H Pulse Oximetry 95 93 L 93 L Intake & Output 06/06/18 06/07/18 06/07/18 18:59 06:59 18:59 Intake Total 1720 / 1720 1240 / 1240 Balance 1720 / 1720 1240 / 1240 Weight 57.4 kg 57.6 kg Intake: IV 1000 / 1000 1000 / 1000 NS Inj 1,000 ML @ 100 mls/hr IV 1000 / 1000 .CONT .Q10H HUNG Rx#:[id number] NS Inj 1,000 ML @ Wide Open IV. 1000 / 1000 SIG BOLUS ONE Rx#:[id number] Oral 720 / 720 240 / 240 Other: # Voids 3 2 # Bowel Movements 0 Weight On Admission 57.4 kg Narrative: GENERAL: Alert, oriented 3, NAD. SKIN: Warm and dry. HEAD: Normocephalic. EYES: No scleral icterus. No injection or drainage. NECK: Supple, trachea midline. No JVD or lymphadenopathy. CARDIOVASCULAR: Regular rate and rhythm without murmurs, gallops, or rubs. RESPIRATORY: Breath sounds equal bilaterally. No accessory muscle use. GASTROINTESTINAL: Abdomen soft, non-tender, nondistended. MUSCULOSKELETAL: No cyanosis, or edema. BACK: Nontender without obvious deformity. No CVA tenderness. Results - Labs CBC & Chem 7: 06/06/18 08:40 06/07/18 07:36 Laboratory Results - last 24 hr 06/06/18 06/06/18 06/06/18 08:40 08:40 10:05 CBC w Diff Slide review pending WBC 10.0 RBC 3.98 L Hgb 12.1 Hct 36.0 MCV 90.6 MCH 30.4 MCHC 33.5 RDW 12.4 Plt Count 1046 H MPV 6.4 L Neut % (Auto) 76.6 H Lymph % (Auto) 13.5 Alexander % (Auto) 8.5 H Eos % (Auto) 0.8 Baso % (Auto) 0.6 Neut # (Auto) 7.5 Lymph # (Auto) 1.4 Alexander # (Auto) 0.9 Eos # (Auto) 0.1 Baso # (Auto) 0.1 WBC Differential . Diff Scan Auto diff confirmed Differential Comment . Platelet Estimate High H Platelet Morphology Normal Sodium 125 L Potassium 3.6 Chloride 91 L Carbon Dioxide 23.7 Anion Gap 10 BUN 12 Creatinine 1.20 H Estimated GFR 43 L Random Glucose 110 H Calcium 8.8 Total Bilirubin 1.8 H AST 15 ALT 16 Alkaline Phosphatase 58 Total Creatine Kinase 42 Troponin I Less than 0.02 L Total Protein 7.5 Albumin 3.8 Lipase 132 Ur Collection Type Clean catch Urine Color Yellow Urine Clarity Clear Urine pH 6.0 Ur Specific [place] Less/equal 1.005 Urine Protein Negative Urine Glucose (UA) Negative Urine Ketones Negative Urine Occult Blood Negative Urine Nitrate Negative Urine Bilirubin Negative Urine Urobilinogen 0.2 Ur Leukocyte Esterase Negative Ur Squamous Epith Cells 0-5 Urine Bacteria Few H Micro UA Comment Culture not ind Ur Microscopic Review Microscopic reviewed Urine Culture Comments Culture not ind 06/07/18 07:36 CBC w Diff WBC RBC Hgb Hct MCV MCH MCHC RDW Plt Count MPV Neut % (Auto) Lymph % (Auto) Alexander % (Auto) Eos % (Auto) Baso % (Auto) Neut # (Auto) Lymph # (Auto) Alexander # (Auto) Eos # (Auto) Baso # (Auto) WBC Differential Diff Scan Differential Comment Platelet Estimate Platelet Morphology Sodium 131 L Potassium 3.1 L Chloride 97 L Carbon Dioxide 24.7 Anion Gap 9 BUN 9 Creatinine 1.00 Estimated GFR 53 L Random Glucose 97 Calcium 7.7 L D Total Bilirubin AST ALT Alkaline Phosphatase Total Creatine Kinase Troponin I Total Protein Albumin Lipase Ur Collection Type Urine Color Urine Clarity Urine pH Ur Specific [place] Urine Protein Urine Glucose (UA) Urine Ketones Urine Occult Blood Urine Nitrate Urine Bilirubin Urine Urobilinogen Ur Leukocyte Esterase Ur Squamous Epith Cells Urine Bacteria Micro UA Comment Ur Microscopic Review Urine Culture Comments - Imaging Impressions Abdomen/Pelvis CT 06/06/18 08:26 CONCLUSION: 1. Bilateral renal scarring. 2. Atherosclerosis. 3. No inflammatory changes are identified. Assessment and Plan - Assessment (1) Burning mouth syndrome Code(s): K14.6 - Glossodynia Status: Acute (2) Thrombocytosis Code(s): D47.3 - Essential (hemorrhagic) thrombocythemia Status: Acute (3) Hyponatremia Code(s): E87.1 - Hypo-osmolality and hyponatremia Status: Acute - Plan Ms. Dent is a pleasant 83-year-old female with a history of hypertension, thrombocytosis, CKD who presents to the emergency department due to 1 month duration of burning mouth symptoms as well as epigastric and substernal burning sensation. Patient recently had EGD and capsule endoscopy by her outpatient GI physician. She has been difficulty eating or drinking due to department sensation. Burning mouth syndrome GERD -No clear etiology. However viral etiology versus GERD are likely results. -We will continue patient on Protonix 40 mg twice daily as well as sucralfate -Continue patient on gabapentin. Will d/c pramipexole -Continue multivitamins Thrombocytosis -patient follows up with an outpatient hematology oncologist. She should likely consider aspirin. Hypertension CKD stage III Hyponatremia -Patient follows up with nephrology Dr. Hinds. -Cr appears to be baseline. Full code. SCDs. Discharge plan: Likely discharge in the morning on 06/08/2018.
[2018-06-07] MEDS ORDERED: dilTIAZem CD 180 MG Capsule PO SCH (09:00)
[2018-06-07] MEDS: Gabapentin 100 MG Capsule PO SCH ×3 (09:49→18:22)
[2018-06-07] MEDS: Citalopram 20 MG Tablet PO SCH (09:50)
[2018-06-07] MEDS: Multivitamin/Minerals Therapeutic Tablet PO SCH (09:50)
[2018-06-07] MEDS: Sucralfate Liq 1 GM/10 ML UDC PO SCH ×5 (09:50→21:38)
[2018-06-07] MEDS: Nystatin/Diphenhydramine/Lidocaine Mouthwash (Adult) 120 ML Botttle SWISH-SWAL PRN (16:19)
[2018-06-08] MEDS: Sod Chloride 0.9% Inj 1,000 ML IV.CONT SCH ×2 (03:41→04:31)
[2018-06-08] MEDS: Levothyroxine 50 MCG Tablet PO SCH ×2 (04:32→05:28)
[2018-06-08 07:31] VITALS: O2SAT 94
[2018-06-08] MEDS ORDERED: amLODIPine 5 MG Tablet PO SCH (09:00)
[2018-06-08] MEDS: Sucralfate Liq 1 GM/10 ML UDC PO SCH (10:01)
[2018-06-08] MEDS: Gabapentin 100 MG Capsule PO SCH (10:01)
[2018-06-08] MEDS: Multivitamin/Minerals Therapeutic Tablet PO SCH (10:01)
[2018-06-08] MEDS: Citalopram 20 MG Tablet PO SCH (10:01)
[2018-06-08] MEDS: Nystatin/Diphenhydramine/Lidocaine Mouthwash (Adult) 120 ML Botttle SWISH-SWAL PRN (10:05)
[2018-06-08 11:22] VITALS: BP 144/70; PULSE 62; TEMP 97.8
--- NOTE | 2018-06-08 14:23 | P.PN ---
Subjective Interval history: Follow-up for burning mouth syndrome. Patient is doing well. Still has some burning sensation. No other concerns. Physical Exam Vital signs: Vital Signs 06/07/18 15:01 06/07/18 19:50 06/07/18 20:00 Temperature 96.5 F L 97.9 F Pulse Rate 62 62 55 L Respiratory Rate 20 20 Blood Pressure 130/76 181/81 H Pulse Oximetry 95 92 L 06/08/18 00:00 06/08/18 04:00 06/08/18 07:30 Temperature 96 F L 97.1 F L 96.6 F L Pulse Rate 57 L 68 59 L Respiratory Rate 20 20 20 Blood Pressure 142/65 H 113/62 158/74 H Pulse Oximetry 97 96 94 L 06/08/18 11:21 Temperature 97.8 F Pulse Rate 62 Respiratory Rate 20 Blood Pressure 144/70 H Pulse Oximetry 94 L Intake & Output 06/07/18 06/08/18 06/08/18 18:59 06:59 18:59 Intake Total 2340 / 2340 1240 / 1240 Balance 2340 / 2340 1240 / 1240 Weight 58 kg Intake: IV 1000 / 1000 1000 / 1000 NS Inj 1,000 ML @ 100 mls/hr IV 1000 / 1000 1000 / 1000 .CONT .Q10H HUNG Rx#:[id number] Oral 1340 / 1340 240 / 240 Other: # Voids 4 3 # Bowel Movements 1 1 Narrative: GENERAL: Alert, oriented 3, NAD. SKIN: Warm and dry. HEAD: Normocephalic. EYES: No scleral icterus. No injection or drainage. NECK: Supple, trachea midline. No JVD or lymphadenopathy. CARDIOVASCULAR: Regular rate and rhythm without murmurs, gallops, or rubs. RESPIRATORY: Breath sounds equal bilaterally. No accessory muscle use. GASTROINTESTINAL: Abdomen soft, non-tender, nondistended. MUSCULOSKELETAL: No cyanosis, or edema. BACK: Nontender without obvious deformity. No CVA tenderness. Results - Labs CBC & Chem 7: 06/06/18 08:40 06/07/18 07:36 Assessment and Plan - Assessment (1) Burning mouth syndrome Code(s): K14.6 - Glossodynia Status: Acute (2) Thrombocytosis Code(s): D47.3 - Essential (hemorrhagic) thrombocythemia Status: Acute (3) Hyponatremia Code(s): E87.1 - Hypo-osmolality and hyponatremia Status: Acute - Plan Ms. Dent is a pleasant 83-year-old female with a history of hypertension, thrombocytosis, CKD who presents to the emergency department due to 1 month duration of burning mouth symptoms as well as epigastric and substernal burning sensation. Patient recently had EGD and capsule endoscopy by her outpatient GI physician. She has been difficulty eating or drinking due to department sensation. Burning mouth syndrome GERD -No clear etiology. However viral etiology versus GERD are likely results. -continu patient on Protonix 40 mg twice daily as well as sucralfate -Continue patient on gabapentin. -Continue multivitamins Thrombocytosis -patient follows up with an outpatient hematology oncologist. She should likely consider aspirin. Hypertension CKD stage III Hyponatremia -Patient follows up with nephrology Dr. Hinds. -Cr appears to be baseline. -BP has been well controlled in the ED. HR is on the lower side 55-60 range. -Discussed with patients - Will d/c Diltiazem as well as Valsartan. -Will start patient on Amlodipine 5mg Qday. Full code. SCDs.
== END 2018-06-08 13:02 | disposition home or self-care (01) ==
LOC: PHEDA 08:05 → PHED 08:05 → PH3 12:25
PROVIDERS: ADMIT Hospitalist; ATTEND Hospitalist
DX: N18.3 Chronic kidney disease, stage 3 (moderate); E03.9 Hypothyroidism, unspecified; K14.6 Glossodynia; D47.3 Essential (hemorrhagic) thrombocythemia; I12.9 Hypertensive chronic kidney disease with stage 1 through stage 4 chronic kidney disease, or unspecified chronic kidney disease; E86.0 Dehydration; I70.0 Atherosclerosis of aorta; K21.9 Gastro-esophageal reflux disease without esophagitis; K57.30 Diverticulosis of large intestine without perforation or abscess without bleeding; E87.1 Hypo-osmolality and hyponatremia